=== PATIENT | female | born 1965 | race Caucasian/White ===

== ENCOUNTER 2018-07-07 11:20 | Emergency (ER) | payer OTHER, MEDICAID, SELFPAY ==
[2018-07-07 11:31] VITALS: BP 121/75; PULSE 76; RESP 20; TEMP 36.4; O2SAT 97
[2018-07-07 12:00] VITALS: BP 118/68; PULSE 61; O2SAT 96
--- NOTE | 2018-07-07 12:15 | ED.HEATRA ---
HPI - Head Injury <MYLES Melgar - Last Filed: 07/07/18 22:21> General Chief complaint: Trauma Stated complaint: Fall 2 weeks ago, still feels off Time Seen by Provider: 07/07/18 12:15 Source: patient Mode of arrival: ambulatory Limitations: no limitations History of Present Illness HPI Narrative: 53-year-old female with history of anxiety and PTSD that is a nonsmoker here for complaint of continued head pain and neck pain after ground level fall 2 weeks ago. She states that she slipped on the steps stepping out of the RV treated hitting the top of her scalp on the steps. She thinks she may have had a brief few seconds of loss of consciousness after the fall. She has had some nausea and vomiting since that timeframe. She also reports having a continued headache on and off since that brain timeframe. She denies other injuries. Positive p.o. intake. She is ambulatory into the emergency the room. She reports pain in the neck area as well. Increased pain with motion of the neck. MD Complaint: head injury Related Data Home Medications Medication Instructions Recorded Confirmed atorvastatin [Lipitor] 20 mg PO BEDTIME #0 05/18/17 07/07/18 buspirone 30 mg PO BID #0 05/18/17 07/07/18 epinephrine [EpiPen 2-Rui] 0.3 mg SQ PRN PRN #0 05/18/17 07/07/18 cetirizine 10 mg PO QDAY #0 05/27/17 07/07/18 duloxetine 60 mg PO QDAY #0 05/27/17 07/07/18 hydrochlorothiazide 25 mg PO QDAY #0 05/27/17 07/07/18 fluoxetine 40 mg PO QAM 07/07/18 07/07/18 soy isofla-blk cohosh-mag bark 1 cap PO DAILY 07/07/18 07/07/18 [Estroven] Previous Rx's Medication Instructions Recorded ondansetron 4 mg PO BID-TID PRN #10 tab 07/07/18 Allergies Allergy/AdvReac Type Severity Reaction Status Date / Time bee pollen [BEE POLLEN] Allergy Severe anaphylacti Unverified 01/11/18 12:40 c Review of Systems <MYLES Melgar - Last Filed: 07/07/18 22:21> Constitutional Denies chills, Denies fatigue, Denies fever(s), Reports headache(s), Denies lethargy and Denies weakness Eyes Denies change in vision, Denies eye discharge, Denies irritation and Denies loss of vision ENT Ears, Nose, Mouth, and Throat: Denies change in voice, Reports headache(s), Reports neck pain and Denies sore throat Cardiovascular Denies dyspnea and Denies dyspnea on exertion Respiratory Denies cough, Denies dyspnea, Denies dyspnea on exertion and Denies wheezing Gastrointestinal Gastrointestinal: Denies abdominal pain, Denies change in bowel habits, Denies diarrhea, Reports nausea and Reports vomiting Genitourinary Denies hematuria, Denies flank pain, Denies urinary incontinence and Denies urinary urgency Musculoskeletal Reports neck pain Integumentary/Breasts Denies pruritus, Denies erythema, Denies rash and Denies wounds Neurologic Denies confusion, Reports headache(s), Denies loss of vision and Denies weakness Psychiatric Denies anxiety, Denies confusion, Denies depression, Denies homicidal ideation and Denies suicidal ideation Endocrine Denies fatigue and Denies flushing Allergic/Immunologic Denies wheezing Exam <MYLES Melgar - Last Filed: 07/07/18 22:21> Initial Vital Signs Initial Vital Signs: Vital Signs Temperature 97.6 F 07/07/18 11:31 Pulse Rate 76 07/07/18 11:31 Respiratory Rate 20 07/07/18 11:31 Blood Pressure 121/75 07/07/18 11:31 Pulse Oximetry 97 07/07/18 11:31 Const General: cooperative and well developed Nutritional Appearance: well nourished Orientation: alert, awake, oriented x3 and not confused [facility] Head: normocephalic, No abrasion, No Oscar's sign, No contusion, No hematoma, No laceration, No palpable skull fracture, No raccoon eyes and scalp tenderness Ears: external ears normal Nose: external nose normal and No nasal discharge Face and sinus: face symmetric and no sinus tenderness Mouth: oral mucosae normal and moist mucous membranes Eyes Conjunctivae: conjunctivae normal Sclera: sclerae normal Pupils: PERRL EOM: EOM intact bilaterally Neck Neck: normal visual inspection, trachea midline, No lymphadenopathy, No midline deformity, tender (Tenderness to the midline on palpation and to right cervical paraspinal) and No JVD Lymphatic: No lymphedema Resp Effort & Inspection: normal respiratory effort, able to speak in complete sentences, no respiratory distress and no use of accessory muscles Auscultation: clear to auscultation bilaterally, no rales, no rhonchi and no wheezes Cardio Rate: regular rate Rhythm: regular rhythm Heart Sounds: no click, no gallops, no murmurs and no rubs Pulses: normal peripheral pulses GI Inspection: non-distended Palpation: soft, no hepatosplenomegaly, No guarding, No pulsatile mass and No tender Auscultation: normal bowel sounds Skin General: no rashes or lesions noted, No jaundice and No petechiae Neuro General: alert, oriented x3, gait normal and no focal motor deficits Speech: speech normal <DO Donna Philippe Last Filed: 07/13/18 05:35> Initial Vital Signs Initial Vital Signs: Vital Signs Temperature 97.6 F 07/07/18 11:31 Pulse Rate 76 07/07/18 11:31 Respiratory Rate 20 07/07/18 11:31 Blood Pressure 121/75 07/07/18 11:31 Pulse Oximetry 97 07/07/18 11:31 Course <MYLES Melgar - Last Filed: 07/07/18 22:21> Orders Ordered: ED Orders 07/07/18 12:33 CT cervical spine wo con Stat CT head/brain wo con Stat Vital Signs - 8 hr 07/07/18 11:31 07/07/18 12:00 07/07/18 12:54 Temperature 97.6 F Pulse Rate 76 61 66 Respiratory Rate 20 14 Blood Pressure 121/75 Blood Pressure [Right Arm] 118/68 118/68 Pulse Oximetry 97 96 96 <DO Donna Philippe Last Filed: 07/13/18 05:35> Orders Ordered: ED Orders 07/07/18 12:33 CT cervical spine wo con Stat CT head/brain wo con Stat Vital Signs - 8 hr 07/07/18 11:31 07/07/18 12:00 07/07/18 12:54 Temperature 97.6 F Pulse Rate 76 61 66 Respiratory Rate 20 14 Blood Pressure 121/75 Blood Pressure [Right Arm] 118/68 118/68 Pulse Oximetry 97 96 96 MDM - Head Injury <MYLES Melgar - Last Filed: 07/07/18 22:21> Imaging Data c spine: Radiologist's impression: [address] [address] [address] Scan Report Signed Patient: Peyton Adams#: [id number] : 1965Acct:[id number] Age/Sex: 53 / FDate of Service: 07/07/18 Loc: ED Accession Number: [id number] Procedure: CT cervical spine wo con Ordering Provider: Mitch Contreras PROCEDURE: CT CERVICAL SPINE WO CON INDICATIONS: head and neck pain post fall hitting head 2 weeks ago TECHNIQUE: Noncontrast 3 mm thick sections acquired from the skull base to the T4 level. Sagittal and coronal reformats were then constructed. For radiation dose reduction, the following was used: automated exposure control, adjustment of mA and/or kV according to patient size. COMPARISON: None. FINDINGS: Image quality: Excellent. Bones: No fractures or dislocations. Visualized superior ribs are intact. Straightening of the normal cervical lordosis. Diffuse endplate spurring and sclerosis. Multiple ununited chronic appearing anterior osteophytes. Bilateral facet arthropathy. Soft tissues: Prevertebral soft tissues are normal in thickness. No paravertebral hematomas. No apical pneumothoraces. Low-attenuation nodule seen in the right lobe of the thyroid IMPRESSION: No acute fracture. Straightening of the normal cervical lordosis. This could be related to spasm versus positioning. Please correlate clinically. Low-attenuation nodule involving the right lobe of the thyroid. Recommend further evaluation with dedicated thyroid ultrasound. Dictated by: Kirt Miller M.D. on 07/07/2018 at 13:14 Approved by: Kirt Miller M.D. on 07/07/2018 at 13:23 CT scan - head: Radiologist's impression: [address] [address] [address] Scan Report Signed Patient: Peyton Adams#: [id number] : 1965Acct:[id number] Age/Sex: 53 / FDate of Service: 07/07/18 Loc: ED Accession Number: [id number] Procedure: CT head/brain wo con Ordering Provider: Mitch Contreras PROCEDURE: CT HEAD/BRAIN WO CON INDICATIONS: Pain top scalp with nausea and vomiting and headache post fall hit head 2 weeks ago TECHNIQUE: Noncontrast 4.5 mm thick angled axial sections acquired from the foramen magnum to the vertex, with coronal and sagittal reformats. For radiation dose reduction, the following was used: automated exposure control, adjustment of mA and/or kV according to patient size. COMPARISON: None. FINDINGS: Image quality: Excellent. CSF spaces: Basal cisterns are patent. No extra-axial fluid collections. Ventricles are normal in size and shape. Brain: No midline shift. No intracranial masses or hemorrhage. Nicolas-white matter interface is normal. Skull and face: Calvarium and visualized facial bones are intact, without suspicious lesions. Posterior scalp swelling at the vertex Sinuses: Visualized sinuses and mastoids are clear. IMPRESSION: No acute intracranial process. Dictated by: Kirt Miller M.D. on 07/07/2018 at 13:11 Approved by: Kirt Miller M.D. on 07/07/2018 at 13:14 [facility] Narrative Medical decision making narrative: CT of the head was obtained was negative for any acute findings. CT of the C-spine was obtained and was negative for any acute fractures or other complications. Incidental finding on CT of the C-spine was or nodule to theR right thyroid. Will have patient follow up with primary care provider for further evaluation and ultrasound. Signs and symptoms of headache and nausea vomiting present as post concussive syndrome. [id number] Tylenol or Motrin as needed for any discomfort. Small is a on a Zofran ODT is prescribed to help with the nausea vomiting. Follow up with primary care provider next week for re-evaluation. For any worsening symptoms return to the emergency room. Discharge Plan Departure Patient Disposition: Home Clinical Impression: Post concussion syndrome Discharge Date/Time: 07/07/18 14:00 Interventions: ED Discharge Assessment Last Done: 07/07/18 13:59 Instructions: DI for Postconcussion Syndrome Activity Restrictions/Additional Instructions: CT of the head and neck were obtained were negative for any signs of trauma. Year signs and symptoms presents as post concussive syndrome. Use [id number] Tylenol or Motrin as needed for any discomfort. Small amount of Zofran as prescribed for nausea use as directed. Incidental finding on CT shows a nodule 2 year right thyroid. Recommend follow up primary care provider for further evaluation and ultrasound. Follow up with her primary care provider next week. For any worsening symptoms return to the emergency room. Prescriptions: New ondansetron 4 mg tablet,disintegrating 4 mg PO BID-TID PRN (Reason: nausea and vomiting) Qty: 10 RF: 0 No Action atorvastatin [Lipitor] 20 MG tablet 20 mg PO BEDTIME Qty: 0 RF: 0 epinephrine [EpiPen 2-Rui] 0.3 MG/0.3 ML auto-injector 0.3 mg SQ PRN PRN (Reason: Allergic Reaction) Qty: 0 RF: 0 buspirone 15 MG tablet 30 mg PO BID Qty: 0 RF: 0 cetirizine 10 MG tablet 10 mg PO QDAY Qty: 0 RF: 0 hydrochlorothiazide 25 MG tablet 25 mg PO QDAY Qty: 0 RF: 0 duloxetine 60 MG capsule,delayed release(DR/EC) 60 mg PO QDAY Qty: 0 RF: 0 fluoxetine 20 mg capsule 40 mg PO QAM RF: 0 soy isofla-blk cohosh-mag bark [Estroven] 155 mg Capsule 1 cap PO DAILY RF: 0 Referrals: [facility] [Provider Group] <Ruth Argueta DO - Last Filed: 07/13/18 05:35> Cosign [facility] I was immediately available in the department for consultation. This documentation has been reviewed and I agree with assessment and plan. Supervised by Ruth Argueta DO
--- NOTE | 2018-07-07 12:33 | DI.CT.S_ITS ---
PROCEDURE: CT CERVICAL SPINE WO CON INDICATIONS: head and neck pain post fall hitting head 2 weeks ago TECHNIQUE: Noncontrast 3 mm thick sections acquired from the skull base to the T4 level. Sagittal and coronal reformats were then constructed. For radiation dose reduction, the following was used: automated exposure control, adjustment of mA and/or kV according to patient size. COMPARISON: None. FINDINGS: Image quality: Excellent. Bones: No fractures or dislocations. Visualized superior ribs are intact. Straightening of the normal cervical lordosis. Diffuse endplate spurring and sclerosis. Multiple ununited chronic appearing anterior osteophytes. Bilateral facet arthropathy. Soft tissues: Prevertebral soft tissues are normal in thickness. No paravertebral hematomas. No apical pneumothoraces. Low-attenuation nodule seen in the right lobe of the thyroid IMPRESSION: No acute fracture. Straightening of the normal cervical lordosis. This could be related to spasm versus positioning. Please correlate clinically. Low-attenuation nodule involving the right lobe of the thyroid. Recommend further evaluation with dedicated thyroid ultrasound. Dictated by: Kirt Miller M.D. on 07/07/2018 at 13:14 Approved by: Kirt Miller M.D. on 07/07/2018 at 13:23
--- NOTE | 2018-07-07 12:33 | DI.CT.S_ITS ---
PROCEDURE: CT HEAD/BRAIN WO CON INDICATIONS: Pain top scalp with nausea and vomiting and headache post fall hit head 2 weeks ago TECHNIQUE: Noncontrast 4.5 mm thick angled axial sections acquired from the foramen magnum to the vertex, with coronal and sagittal reformats. For radiation dose reduction, the following was used: automated exposure control, adjustment of mA and/or kV according to patient size. COMPARISON: None. FINDINGS: Image quality: Excellent. CSF spaces: Basal cisterns are patent. No extra-axial fluid collections. Ventricles are normal in size and shape. Brain: No midline shift. No intracranial masses or hemorrhage. Nicolas-white matter interface is normal. Skull and face: Calvarium and visualized facial bones are intact, without suspicious lesions. Posterior scalp swelling at the vertex Sinuses: Visualized sinuses and mastoids are clear. IMPRESSION: No acute intracranial process. Dictated by: Kirt Miller M.D. on 07/07/2018 at 13:11 Approved by: Kirt Miller M.D. on 07/07/2018 at 13:14
--- NOTE | 2018-07-07 12:42 | PC.NURSE ---
REAP concussion booklet given to pt for education
[2018-07-07 12:54] VITALS: BP 118/68; PULSE 66; RESP 14; O2SAT 96
[2018-07-07 13:59] VITALS: BP 120/62; PULSE 64; RESP 18; O2SAT 98
== END 2018-07-07 14:00 | disposition home or self-care (01) ==
PROVIDERS: Emergency Provider Nurse Practitioner Family
DX: F07.81 Postconcussional syndrome (principal); W01.198A Fall on same level from slipping, tripping and stumbling with subsequent striking against other object, initial encounter
CPT/HCPCS: 70450; 72125; 99283; 99284; 99291

== ENCOUNTER 2019-07-23 10:26 | Emergency (ER) | payer OTHER, MEDICAID, SELFPAY ==
[2019-07-23 10:34] VITALS: BP 129/75; PULSE 74; RESP 12; TEMP 36.2; O2SAT 99
--- NOTE | 2019-07-23 10:40 | DI.RAD.S_ITS ---
PROCEDURE: XR SHOULDER RT MIN 2V INDICATIONS: hx rotator cuff surgery 2017/ now pain TECHNIQUE: 3 views of the shoulder were acquired. [facility] [place], XR SHOULDER MIN 2VW RT, 03/24/2017, 11:11. FINDINGS: Bones: Severe degenerative changes are present involving the acromioclavicular joint. There are at least moderate degenerative changes of the glenohumeral joint. No displaced fractures or dislocations are appreciated. No suspicious osseous lesions are identified. Soft tissues: No suspicious soft tissue calcifications. IMPRESSION: Degenerative changes of the right shoulder joint without an acute fracture evident. Dictated by: Merlin Casiano M.D. on 07/23/2019 at 10:16 Approved by: Merlin Casiano M.D. on 07/23/2019 at 10:16
[2019-07-23] MEDS: KETOROLAC 60 MG/2 ML VIAL IM (11:17)
--- NOTE | 2019-07-23 11:22 | ED.EXTPRO ---
HPI - Extremity Problem <Ruth FitchHAYESP-BC - Last Filed: 07/23/19 14:17> General Chief complaint: Extremity Problem,Nontraumatic Stated complaint: Right shoulder pain Time Seen by Provider: 07/23/19 11:00 Source: patient Mode of arrival: Ambulatory Limitations: no limitations History of Present Illness HPI Narrative: The patient is a 54-year-old female nonsmoker with history of depression who presents with a chief complaint of right shoulder pain. She states that it has been hurting for several days, that she had a ground level fall trip and fall on Tuesday but does not think that she landed on her shoulder. She states she might of braced herself. She states that she has a history of rotator cuff repair in 2017 on that side. She has not taken anything for the pain or applied ice. She states that she has slightly decreased range of motion. Pain is worse by movement and improved by rest. She denies any neck or back pain. She denies hitting her head or any other injury from the fall. Related Data Home Medications Medication Instructions Recorded Confirmed atorvastatin [Lipitor] 20 mg PO BEDTIME #0 05/18/17 07/23/19 buspirone 30 mg PO BID #0 05/18/17 07/23/19 epinephrine [EpiPen 2-Rui] 0.3 mg SQ PRN PRN #0 05/18/17 07/23/19 cetirizine 10 mg PO DAILY #0 05/27/17 07/23/19 duloxetine 60 mg PO DAILY #0 05/27/17 07/23/19 hydrochlorothiazide 25 mg PO DAILY #0 05/27/17 07/23/19 fluoxetine 40 mg PO QAM 07/07/18 07/23/19 soy isofla-blk cohosh-mag bark 1 cap PO DAILY 07/07/18 07/23/19 [Estroven] acyclovir 400 mg PO TID 07/23/19 07/23/19 prazosin 1 mg PO BEDTIME 07/23/19 07/23/19 topiramate 50 mg PO DAILY 07/23/19 07/23/19 Previous Rx's Medication Instructions Recorded ketorolac 10 mg PO TID PRN #15 tab 07/23/19 Allergies Allergy/AdvReac Type Severity Reaction Status Date / Time bee pollen [BEE POLLEN] Allergy Severe anaphylacti Unverified 01/11/18 12:40 c Review of Systems <MARC Kimball - Last Filed: 07/23/19 14:17> Review of Systems Narrative: GENERAL: Denies chills, fatigue, malaise, fever, sweats. HEENT: Denies sinus pain, ear pain, sore throat, difficulty swallowing, dizziness. RESPIRATORY: Denies dyspnea, cough, wheezing, hemoptysis, sputum. CARDIOVASCULAR: Denies chest pain, palpitations, orthopnea, edema, GASTROINTESTINAL: Denies nausea, vomiting, abdominal pain, diarrhea, constipation, melena. : Denies dysuria, frequency, incontinence, hematuria, urinary retention. MUSCULOSKELETAL: See HPI SKIN: Denies rash, skin lesions, or other NEUROLOGIC: Denies weakness, headache, numbness, change in speech, confusion, seizures, incoordination. PSYCHIATRIC: No concerning psychosocial issues. 12 point review of systems is negative except for those stated above Patient History <MARC Kimball - Last Filed: 07/23/19 14:17> Medical History (Updated 07/23/19 @ 11:55 by MARC Kimball) Hyperlipidemia (Acute) Surgical History (Updated 07/23/19 @ 11:26 by MARC Kimball) History of repair of right rotator cuff (Acute) Family History (Updated 10/12/16 @ 00:00 by Conversion Provider) Brother Age: 56 Hypertension Heart disease High cholesterol Father Hypertension Mental health problem Mother Stroke Grandfather Cancer Heart disease Hypertension Grandmother Cancer Hypertension Mental health problem Social History Smoking Status: Never smoker alcohol intake frequency: other Substance Use Type: does not use Exam <MARC Kimball - Last Filed: 07/23/19 14:17> Narrative Exam Narrative: GENERAL: This is a well-nourished, well-developed patient, in no acute distress HEAD: Atraumatic. Normocephalic. No temporal or scalp tenderness. EYES: Pupils equal round and reactive. Extraocular motions intact. No scleral icterus. No injection or drainage. ENT: Nose without bleeding, purulent drainage or septal hematoma. Throat without erythema, tonsillar hypertrophy or exudate. Uvula midline. Airway patent. NECK: Trachea midline. No JVD or lymphadenopathy. Supple, nontender, no meningeal signs. CARDIOVASCULAR: Regular rate and rhythm RESPIRATORY: Clear to auscultation. Breath sounds equal bilaterally. No wheezes, rales, or rhonchi. No cough. No increased respiratory effort. No accessory muscle use. GASTROINTESTINAL: Abdomen soft, non-tender, nondistended. No hepato-splenomegaly, or palpable masses. No guarding. EXTREMITIES: Generalized pain to palpation right shoulder, decreased range of motion all fox been able to flex and extend. Negative empty can test. Positive radial pulse right hand. BACK: Nontender without deformity or crepitance. No flank tenderness. No pain to CT or L-spine tenderness to palpation. NEURO: AOx3. SKIN: No rash or erythema visible skin or right shoulder Initial Vital Signs Initial Vital Signs: Vital Signs Temperature 97.2 F L 07/23/19 10:34 Pulse Rate 74 07/23/19 10:34 Respiratory Rate 12 07/23/19 10:34 Blood Pressure 129/75 07/23/19 10:34 Pulse Oximetry 99 07/23/19 10:34 <Rehan Mccormack DO - Last Filed: 07/23/19 14:32> Initial Vital Signs Initial Vital Signs: Vital Signs Temperature 97.2 F L 07/23/19 10:34 Pulse Rate 74 07/23/19 10:34 Respiratory Rate 12 07/23/19 10:34 Blood Pressure 129/75 07/23/19 10:34 Pulse Oximetry 99 07/23/19 10:34 Scores <MARC Kimball - Last Filed: 07/23/19 14:17> GCS Araceli coma scale eye opening: Spontaneous Loma coma scale verbal response: Orientated Araceli coma scale motor response: Obey commands Loma coma scale total score: 15 Nexus Score for C-Spine Focal Neurologic deficit present: No Midline spinal tenderness present: No Altered level of conciousness present: No Intoxication present: No Distracting Injury Present: No Nexus Criteria for C-spine: 0 Course <MARC Kimball - Last Filed: 07/23/19 14:17> Orders Ordered: ED Orders 07/23/19 10:40 XR shoulder RT min 2V Stat Discontinued Medications Ketorolac Tromethamine (Toradol) 60 mg IM NOW ONE Stop: 07/23/19 11:09 Last Admin: 07/23/19 11:17 Dose: 60 mg Documented by: ANITA Vital Signs Vital signs: Vital Signs - 8 hr 07/23/19 10:34 07/23/19 12:04 Temperature 97.2 F L Pulse Rate 74 57 L Respiratory Rate 12 16 Blood Pressure 129/75 123/71 Pulse Oximetry 99 97 <Rehan Mccormack DO - Last Filed: 07/23/19 14:32> Orders Ordered: ED Orders 07/23/19 10:40 XR shoulder RT min 2V Stat Discontinued Medications Ketorolac Tromethamine (Toradol) 60 mg IM NOW ONE Stop: 07/23/19 11:09 Last Admin: 07/23/19 11:17 Dose: 60 mg Documented by: ANITA Vital Signs Vital signs: Vital Signs - 8 hr 07/23/19 10:34 07/23/19 12:04 Temperature 97.2 F L Pulse Rate 74 57 L Respiratory Rate 12 16 Blood Pressure 129/75 123/71 Pulse Oximetry 99 97 MDM - Extremity (Nontraumatic) <JUAN R Kimball-MACEY - Last Filed: 07/23/19 14:17> Imaging Data shoulder xray : Radiologist's impression: [place] [address] XRay Report Signed Patient: Casie Adams KMR#: [id number] : 1965Acct:[id number] Age/Sex: 54 / FDate of Service: 07/23/19 Loc: ED Accession Number: [id number] Procedure: XR shoulder RT min 2V Ordering Provider: Rehan Mccormack D.O. PROCEDURE: XR SHOULDER RT MIN 2V INDICATIONS: hx rotator cuff surgery 2017/ now pain TECHNIQUE: 3 views of the shoulder were acquired. [facility], [facility] SH[facility]ER MIN 2VW RT, 03/24/2017, 11:11. FINDINGS: Bones: Severe degenerative changes are present involving the acromioclavicular joint. There are at least moderate degenerative changes of the glenohumeral joint. No displaced fractures or dislocations are appreciated. No suspicious osseous lesions are identified. Soft tissues: No suspicious soft tissue calcifications. IMPRESSION: Degenerative changes of the right shoulder joint without an acute fracture evident. Dictated by: Merlin Casiano M.D. on 07/23/2019 at 10:16 Approved by: Merlin Casiano M.D. on 07/23/2019 at 10:16 [facility] Narrative Medical decision making narrative: The patient is a 54-year-old female nonsmoker presents with a chief complaint of shoulder pain onset over the past few days. She states she has history of rotator cuff repair on that side. X-ray was taken to evaluate for fracture, which found no fracture but severe degenerative disease. The patient has reassuring range of motion, is neurovascularly intact. I did give her prescription of Toradol as Toradol helped her in the emergency department strict instructions to not combine it with ibuprofen or Aleve. Encouraged follow-up with primary care provider as well as coming back to the emergency department for any acute concerns. Patient has no questions or concerns upon discharge Discharge Plan Departure Patient Disposition: Home Clinical Impression: Acute shoulder pain Qualifiers: Laterality: right Qualified Code(s): M25.511 - Pain in right shoulder Discharge Date/Time: 07/23/19 12:04 Instructions: How To Perform RICE (Rest, Ice, Compress, Elevate), DI for Shoulder Pain Activity Restrictions/Additional Instructions: As I discussed, your x-ray shows no acute fracture. This does not rule out a soft tissue injury such as a ligament or tendon injury. It is important that you follow up with primary care provider, especially if worsening or no improvement. There can be fractures that did not show up on initial x-ray. I have given you a prescription of Toradol. This is an NSAID. Do not combine it with other NSAIDs such as Aleve or ibuprofen. I suggest taking it with some food, as it can irritate your stomach. Please follow up with primary care provider in the next few days. Please come back to the emergency department for any acute concerns such as chest pain, concern of heart attack, concern of stroke, inability keep down fluids or any other acute concerns. Prescriptions: New ketorolac 10 mg tablet 10 mg PO TID PRN (Reason: pain) Qty: 15 RF: 0 No Action atorvastatin [Lipitor] 20 MG tablet 20 mg PO BEDTIME Qty: 0 RF: 0 epinephrine [EpiPen 2-Rui] 0.3 MG/0.3 ML auto-injector 0.3 mg SQ PRN PRN (Reason: Allergic Reaction) Qty: 0 RF: 0 buspirone 15 MG tablet 30 mg PO BID Qty: 0 RF: 0 cetirizine 10 MG tablet 10 mg PO DAILY Qty: 0 RF: 0 hydrochlorothiazide 25 MG tablet 25 mg PO DAILY Qty: 0 RF: 0 duloxetine 60 MG capsule,delayed release(DR/EC) 60 mg PO DAILY Qty: 0 RF: 0 fluoxetine 20 mg capsule 40 mg PO QAM RF: 0 Estroven 155 mg Capsule 1 cap PO DAILY RF: 0 acyclovir 400 mg tablet 400 mg PO TID RF: 0 prazosin 1 mg capsule 1 mg PO BEDTIME RF: 0 topiramate 25 mg tablet 50 mg PO DAILY RF: 0 <Rehan Mccormack, - Last Filed: 07/23/19 14:32> Sign Out Provider Sign Out Attestation: I was available for consultation during this patient's emergency department visit. This chart is signed by myself for administrative purposes only. I did not have direct contact with this patient during this visit. They were seen independently by the APC.
[2019-07-23 12:04] VITALS: BP 123/71; PULSE 57; RESP 16; O2SAT 97
== END 2019-07-23 12:04 | disposition home or self-care (01) ==
PROVIDERS: Emergency Provider Nurse Practitioner Family
DX: M25.511 Pain in right shoulder (principal); W18.30XA Fall on same level, unspecified, initial encounter
CPT/HCPCS: 73030; 96372; 99282; 99283; J1885